=== PATIENT | female | born 1960 | race Hispanic/Latino ===

== ENCOUNTER 2017-09-02 14:07 | Emergency (ER) | payer BC ==
[2017-09-02 14:24] VITALS: BMI 47.2
--- NOTE | 2017-09-02 14:44 | C.PDOC ---
History Of Present Illness 57 y/o female, w/PMhx of diabetes, HTN, HIV, and thyroid disease, presents to the ER complaining of palpitations associated with some SOB and dizziness which began in the morning today. Patient states that she took some Tylenol and rested. Patient states that she did not feel better after her rest. She notes that she feels better but she still feels light- headed. Denies having CP, SOB, and other complaints at this time. Of note, patient is eating and drinking well. Time Seen by Provider: 09/02/17 14:13 Chief Complaint (Nursing): Headache History Per: Patient History/Exam Limitations: no limitations Onset/Duration Of Symptoms: Hrs Current Symptoms Are (Timing): Still Present Severity: Moderate Past Medical History Reviewed: Historical Data, Nursing Documentation, Vital Signs Vital Signs: Last Vital Signs Temp 97.7 F 09/02/17 14:24 Pulse 97 H 09/02/17 14:13 Resp 98 H 09/02/17 14:24 BP 123/72 09/02/17 14:24 Pulse Ox 24 L 09/02/17 15:16 - Medical History PMH: HIV, HTN, Hypercholesterolemia, Seizures Other Surgeries: Hx of surgeries Family History: States: No Known Family Hx - Social History Hx Alcohol Use: No Hx Substance Use: No - Immunization History Hx Tetanus Toxoid Vaccination: No Hx Influenza Vaccination: Yes Hx Pneumococcal Vaccination: Yes Review Of Systems Constitutional: Negative for: Fever, Chills Cardiovascular: Positive for: Palpitations, Light Headedness. Negative for: Chest Pain Respiratory: Positive for: Shortness of Breath. Negative for: Cough Gastrointestinal: Negative for: Nausea, Vomiting, Abdominal Pain Neurological: Positive for: Headache, Dizziness Physical Exam - Physical Exam Appears: Non-toxic, No Acute Distress, Other (morbidly obese) Skin: Normal Color, Warm, Dry Head: Atraumatic, Normacephalic Eye(s): bilateral: Normal Inspection Nose: No Tenderness (sinus tenderness), Other (mild nasal congestion) Oral Mucosa: Moist Neck: Supple Chest: Symmetrical Cardiovascular: Rhythm Regular Respiratory: Normal Breath Sounds, No Rales, No Rhonchi, No Wheezing Gastrointestinal/Abdominal: Soft, No Tenderness, No Guarding, No Rebound, Other (obese) Extremity: Normal ROM, No Pedal Edema Neurological/Psych: Oriented x3, Normal Speech ED Course And Treatment - Laboratory Results Result Diagrams: 09/02/17 15:13 09/02/17 15:13 Lab Interpretation: Abnormal (Plt 423, BUN 16, Cr 1.3, glucose 167, Ca 8.0, alk phos 170) ECG: Interpreted By Me ECG Rhythm: Sinus Rhythm, ST/T Changes (diffusely flat) ECG Interpretation: No Acute Changes Reevaluation Time: 16:24 Reassessment Condition: Improved Medical Decision Making Medical Decision Making: Plan: --Glucose, POC Disposition Counseled Patient/Family Regarding: Studies Performed, Diagnosis, Need For Followup - Disposition Disposition: HOME/ ROUTINE Disposition Time: 16:31 Condition: IMPROVED Instructions: Palpitations, Dizziness, Nonvertigo, (DC) Forms: [employer] ([place]) - Clinical Impression Clinical Impression: Palpitations, Dizziness - Scribe Statement The provider has reviewed the documentation as recorded by the Jonibe Alfonzo Irvin Provider Attestation: All medical record entries made by the Scribe were at my direction and personally dictated by me. I have reviewed the chart and agree that the record accurately reflects my personal performance of the history, physical exam, medical decision making, and the department course for this patient. I have also personally directed, reviewed, and agree with the discharge instructions and disposition.
[2017-09-02] MEDS ORDERED: Sodium Chloride 0.9% 1,000 ML IV ONE (15:00)
[2017-09-02 15:18] LABS: BASO # 0.1 K/uL (0.0-0.2); BASO % 0.9 % (0.0-2.0); EOS # 0.3 K/uL (0.0-0.7); HEMOGLOBIN 13.6 g/dL (11.0-16.0); MEAN CELL VOLUME 87.8 fL (81.0-99.0); MEAN CORPUSCULAR HEMOGLOBIN 29.8 pg (27.0-31.0); MEAN CORPUSCULAR HGB CONC 33.9 g/dL (33.0-37.0); MEAN PLATELET VOLUME 7.1 fL (7.2-11.7); MONO # 0.4 K/uL (0.0-0.8); NEUT # 6.9 K/uL (1.8-7.0); NEUT % 71.1 % (50.0-75.0); NRBC % 0.1 % (0.0-2.0); RBC 4.57 Mil/uL (3.80-5.20); RED CELL DISTRIBUTION WIDTH 14.2 % (11.5-14.5); WHITE BLOOD COUNT 9.6 K/uL (4.8-10.8)
[2017-09-02 15:32] LABS: ALB/GLOB RATIO 1.3 (1.0-2.1); ALBUMIN 4.2 g/dL (3.5-5.0)
[2017-09-02 15:47] LABS: SQUAMOUS EPITHIAL < 1 /hpf (0-5); URINE BACTERIA RARE (<OCC); URINE BILIRUBIN NEGATIVE (NEGATIVE); URINE BLOOD NEGATIVE (NEGATIVE); URINE CLARITY Clear (Clear); URINE COLOR Yellow (YELLOW); URINE GLUCOSE (UA) NORMAL (Normal); URINE LEUKOCYTE ESTERASE 1+ Leu/uL (Negative); URINE PROTEIN NEGATIVE (NEGATIVE); URINE UROBILINOGEN NORMAL mg/dL (0.2-1.0)
[2017-09-02 16:44] VITALS: BP 142/81; PULSE 74; RESP 20; TEMP 97.8; O2SAT 98
== END 2017-09-02 16:44 | disposition home or self-care (01) ==
LOC: C.ER 14:07
DX: R00.2 Palpitations (principal); R42 Dizziness and giddiness
CPT/HCPCS: 80053; 81001; 82948; 83735; 85025; 96360; 99285; J7030